=== PATIENT | female | born 1955 | race Caucasian/White ===

== ENCOUNTER → 2018-12-08 | Outpatient (CLI) | payer BC ==
[~2018-12-08] MED LIST: AMIT50 PO; AMLO5 PO; ATOR20 PO; KETO10 PO; LISI20 PO; Pepcid40 MG PO
[2018-12-08 12:40] LABS: BASOPHILS ABSOLUTE AUTO 0.05 K/mm3 (0.00-0.23); BASOPHILS PERCENT AUTO 0 % (0-2); EOSINOPHILS ABSOLUTE AUTO 0.07 K/mm3 (0.00-0.68); EOSINOPHILS PERCENT AUTO 1 % (0-6); Hematocrit 43.6 % (33.0-51.0); Hemoglobin 14.5 g/dL (11.5-16.0); IMMATURE GRAN ABSOLUTE AUTO 0.03 K/mm3 (0.00-0.10); IMMATURE GRAN PERCENT AUTO 0 % (0-1); LYMPHOCYTES PERCENT AUTO 14 % (21-46); MONOCYTES PERCENT AUTO 6 % (4-13); Mean Corpuscular HGB 31.1 pg (26.0-34.0); Mean Corpuscular HGB Conc 33.3 g/dL (31.5-36.5); Mean Corpuscular Volume 94 fL (80-100); Mean Platelet Volume 10.8 fL (9.1-12.4); NEUTROPHILS ABSOLUTE AUTO 9.54 K/mm3 (1.96-9.15); NEUTROPHILS PERCENT AUTO 79 % (41-73); Platelet Count 336 K/mm3 (150-400); RDW Coefficient Variation 11.7 % (11.7-14.2); RDW Standard Deviation 39.6 fL (35.1-46.3); Red Blood Cell Count 4.66 M/mm3 (3.80-5.20); White Blood Cell Count 12.09 K/mm3 (4.00-11.30)
[2018-12-08 12:43] LABS: Alanine Aminotransfer (ALT/SGP 30 U/L (12-78); Albumin, Blood 4.2 g/dL (3.4-5.0); Alk Phos 141 U/L (50-136); Anion Gap 10 mmol/L (6-16); Aspartate Aminotrans (AST/SGOT 19 U/L (12-37); Bilirubin, Total 0.8 mg/dL (0.1-1.0); Blood Urea Nitrogen 15 mg/dL (8-24); Bun/Creatinine Ratio 19.6 (12.0-20.0); CO2, Blood 28 mmol/L (21-32); Calcium, Blood 9.5 mg/dL (8.5-10.1); Chloride, Blood 102 mmol/L (98-108); Creatinine, Blood 0.77 mg/dL (0.40-1.00); Globulin, Blood 4.2 g/dL (2.2-4.0); Glomerular Filtration Rate >60 (60-); Glucose, Blood 122 mg/dL (70-99); Sodium, Blood 140 mmol/L (136-145); Total Protein, Blood 8.4 g/dL (6.4-8.2)
== END ==
LOC: LAB 11:59 → LAB SHORT 11:59
PROVIDERS: Nurse Practitioner
DX: R10.84 Generalized abdominal pain (principal)
CPT/HCPCS: 80053; 85025

== ENCOUNTER 2019-12-15 10:25 | Observation (INO) | payer MEDICARE, OTHER ==
[~2019-12-15] VITALS: Ht 157.5 cm; Wt 68.2 kg
[~2019-12-15 10:25] MED LIST changes: -AMIT50 PO; -AMLO5 PO; -ATOR20 PO; -KETO10 PO; -LISI20 PO
[2019-12-15 10:56] LABS: BASOPHILS ABSOLUTE AUTO 0.05 K/mm3 (0.00-0.23); BASOPHILS PERCENT AUTO 1 % (0-2); EOSINOPHILS PERCENT AUTO 1 % (0-6); Hematocrit 43.6 % (33.0-51.0); Hemoglobin 14.9 g/dL (11.5-16.0); IMMATURE GRAN ABSOLUTE AUTO 0.02 K/mm3 (0.00-0.10); IMMATURE GRAN PERCENT AUTO 0 % (0-1); LYMPHOCYTES ABSOLUTE AUTO 1.72 K/mm3 (0.84-5.20); LYMPHOCYTES PERCENT AUTO 23 % (21-46); MONOCYTES ABSOLUTE AUTO 0.39 K/mm3 (0.16-1.47); MONOCYTES PERCENT AUTO 5 % (4-13); Mean Corpuscular HGB 32.2 pg (26.0-34.0); Mean Corpuscular HGB Conc 34.2 g/dL (31.5-36.5); Mean Corpuscular Volume 94 fL (80-100); Mean Platelet Volume 9.9 fL (9.1-12.4); NEUTROPHILS ABSOLUTE AUTO 5.28 K/mm3 (1.96-9.15); NEUTROPHILS PERCENT AUTO 70 % (41-73); Platelet Count 306 K/mm3 (150-400); RDW Standard Deviation 38.2 fL (35.1-46.3); Red Blood Cell Count 4.63 M/mm3 (3.80-5.20); White Blood Cell Count 7.56 K/mm3 (4.00-11.30)
[2019-12-15 11:15] LABS: Alanine Aminotransfer (ALT/SGP 24 U/L (12-78); Albumin, Blood 4.2 g/dL (3.4-5.0); Albumin/Globulin Ratio 1.1 (0.8-1.8); Alk Phos 103 U/L (50-136); Anion Gap 4 mmol/L (6-16); Aspartate Aminotrans (AST/SGOT 18 U/L (12-37); Bilirubin, Total 0.7 mg/dL (0.1-1.0); Blood Urea Nitrogen 18 mg/dL (8-24); Bun/Creatinine Ratio 30.8 (12.0-20.0); CO2, Blood 30 mmol/L (21-32); Calcium, Blood 9.2 mg/dL (8.5-10.1); Chloride, Blood 99 mmol/L (98-108); Creatinine, Blood 0.58 mg/dL (0.40-1.00); Globulin, Blood 3.8 g/dL (2.2-4.0); Glomerular Filtration Rate >60 (60-); Glucose, Blood 120 mg/dL (70-99); Sodium, Blood 133 mmol/L (136-145)
[2019-12-15] MEDS ORDERED: ATOR40TA PO (14:09)
[2019-12-15] MEDS ORDERED: ALBU90OI INH (14:10)
[2019-12-15] MEDS ORDERED: AMIT50 PO (14:32)
[2019-12-15] MEDS ORDERED: AMLODIPINE BES2.5 MG PO (14:32)
[2019-12-15] MEDS ORDERED: KETO10 PO (14:32)
[2019-12-15] MEDS ORDERED: LISI20 PO (14:35)
[2019-12-15 16:20] LABS: Source, Urine Clean Catch
[2019-12-15 16:27] LABS: Bilirubin, Urine Neg (Neg); Blood, Urine Neg (Neg); Glucose Qualitative, Urine Neg (Neg); Ketones, Urine 1+ (Neg); Leukocyte Esterase, Urine Neg (Neg); Nitrite, Urine Neg (Neg); Protein, Urine Neg (Neg); Specific Gravity, Urine 1.005 (1.003-1.022); Urobilinogen, Urine NORM (Normal)
[2019-12-15 16:38] LABS: Appearance, Urine Clear (Clear); Color, Urine Pale Yellow (P-Yellow)
--- NOTE | 2019-12-15 19:13 | NUR ---
PT JUST SAID SHE HAD A BM BUT WAS UNIDENTIFIED, NOT SEEN BY LEARNING MANAGER, PT TOOK OUT MEASUING GRADULE, URINE OUTPUT NOT MEASURED
--- NOTE | 2019-12-15 20:04 | NUR ---
SHIFT SUMMARY- PT ALERT AND ORIENTED AND INDEPENDENT PER REPORT FROM ED. PT A&O X4 WITH SOME DIFFICULTY WITH WORD RECALL. PT CAN CARRY ON A CONVERSATION WELL ENOUGH. NO NOTABLE PHYSICAL DEFICITES. ADMISSION ASSESSMENT COMPLETEWD AND MED REC COMPLETED WITH WRITTEN MED LIST PROVIDED BY PT SPOUSE, PHOTO COPY PLACED IN THE PT CHART WITH A PT SCREWDOWN OPERATOR IT.
[2019-12-16 04:28] LABS: BASOPHILS ABSOLUTE AUTO 0.05 K/mm3 (0.00-0.23); BASOPHILS PERCENT AUTO 1 % (0-2); EOSINOPHILS ABSOLUTE AUTO 0.13 K/mm3 (0.00-0.68); EOSINOPHILS PERCENT AUTO 2 % (0-6); Hematocrit 41.2 % (33.0-51.0); Hemoglobin 13.8 g/dL (11.5-16.0); IMMATURE GRAN ABSOLUTE AUTO 0.02 K/mm3 (0.00-0.10); IMMATURE GRAN PERCENT AUTO 0 % (0-1); LYMPHOCYTES ABSOLUTE AUTO 1.77 K/mm3 (0.84-5.20); LYMPHOCYTES PERCENT AUTO 27 % (21-46); MONOCYTES ABSOLUTE AUTO 0.45 K/mm3 (0.16-1.47); MONOCYTES PERCENT AUTO 7 % (4-13); Mean Corpuscular HGB 31.7 pg (26.0-34.0); Mean Corpuscular HGB Conc 33.5 g/dL (31.5-36.5); Mean Corpuscular Volume 95 fL (80-100); Mean Platelet Volume 9.6 fL (9.1-12.4); NEUTROPHILS ABSOLUTE AUTO 4.15 K/mm3 (1.96-9.15); NEUTROPHILS PERCENT AUTO 63 % (41-73); Platelet Count 269 K/mm3 (150-400); RDW Coefficient Variation 11.1 % (11.7-14.2); RDW Standard Deviation 38.5 fL (35.1-46.3); Red Blood Cell Count 4.35 M/mm3 (3.80-5.20); White Blood Cell Count 6.57 K/mm3 (4.00-11.30)
[2019-12-16 04:46] LABS: Alanine Aminotransfer (ALT/SGP 22 U/L (12-78); Albumin, Blood 3.5 g/dL (3.4-5.0); Alk Phos 85 U/L (50-136); Anion Gap 5 mmol/L (6-16); Aspartate Aminotrans (AST/SGOT 14 U/L (12-37); Bilirubin, Total 0.4 mg/dL (0.1-1.0); Blood Urea Nitrogen 14 mg/dL (8-24); Bun/Creatinine Ratio 21.5 (12.0-20.0); CO2, Blood 30 mmol/L (21-32); Calcium, Blood 8.5 mg/dL (8.5-10.1); Chloride, Blood 105 mmol/L (98-108); Creatinine, Blood 0.65 mg/dL (0.40-1.00); Globulin, Blood 3.6 g/dL (2.2-4.0); Glomerular Filtration Rate >60 (60-); Glucose, Blood 113 mg/dL (70-99); Potassium, Blood 4.3 mmol/L (3.5-5.5); Sodium, Blood 140 mmol/L (136-145); Total Protein, Blood 7.1 g/dL (6.4-8.2)
--- NOTE | 2019-12-16 06:45 | NUR ---
SHIFT SUMMARY: A/OX3. MAKES NEEDS KNOWN. REPORTED L SIDED LINCOLN X1. RESPONDED WELL TO TYLENOL. SMILE SYMMETRICAL. VISITOR SERVICES ASSISTANT/PUSHES/PULLS EQUAL BILATERLLY. CONT TO BE SLOW WITH VERBAL RESPONSES AND STRUGGLES WITH FINDING WORDS. FAMILY CONCERNED, STATING PT. HAS BEEN INCREASINGLY FORGETFUL FOR SOME TIME PRIOR TO BEING ADMITTED TO HOSPITAL. DENIES LINCOLN AT THIS TIME. BED LOW, CALL BUTTON IN REACH. WILL CONT TO MONITOR.
[2019-12-16] MEDS ORDERED: Aspir 8181 MG PO (11:33)
--- NOTE | 2019-12-16 12:57 | NUR ---
SUMMARY/DISCHARGE PT AND SPOUSE VERBALIZED UNDERSTANDING OF DISCHARGE INSTRUCTIONS REGARDING MEDS AND STATED THEY WOULD CALL AND SET UP AN APPOINTMENT WITH THE PCP ON WEDNESDAY, PT TAKEN OUT SAFELY VIA WHEELCHAIR
== END 2019-12-16 12:58 | disposition home or self-care (01) ==
LOC: ER 10:25 → MEDS 10:26 → ER 14:24 → MEDS 16:59 → ENPENDDIS 12-16 11:27 → MEDS 12-16 12:58
PROVIDERS: Nurse Practitioner Acute Care; Physician Assistant; ADMIT Family Medicine
DX: I63.512 Cerebral infarction due to unspecified occlusion or stenosis of left middle cerebral artery (principal); I63.532 Cerebral infarction due to unspecified occlusion or stenosis of left posterior cerebral artery; I10 Essential (primary) hypertension; E78.5 Hyperlipidemia, unspecified; F32.9 Major depressive disorder, single episode, unspecified; G43.909 Migraine, unspecified, not intractable, without status migrainosus; K21.9 Gastro-esophageal reflux disease without esophagitis; E78.1 Pure hyperglyceridemia; L40.9 Psoriasis, unspecified; Z79.82 Long term (current) use of aspirin; Z79.899 Other long term (current) drug therapy; Z87.891 Personal history of nicotine dependence
CPT/HCPCS: 36415; 70450; 70551; 80053; 81003; 83735; 85025; 92523; 93005; 93010; 93306; 93880; 97161; 99285-25; A9270; A9270-GY; G0378; J7030

== ENCOUNTER 2020-04-16 09:15 | Emergency (ER) | payer MEDICARE, OTHER ==
[~2020-04-16] VITALS: Ht 157.5 cm; Wt 66.7 kg
[~2020-04-16 09:15] MED LIST changes: +ALBU90OI INH; +AMIT50 PO; +AMLODIPINE BES2.5 MG PO; +ATOR40TA PO; +Aspir 8181 MG PO; +KETO10 PO; +LISI20 PO
[2020-04-16] MEDS ORDERED: CLOP75 PO (10:42)
[2020-04-16 10:44] LABS: BASOPHILS ABSOLUTE AUTO 0.07 K/mm3 (0.00-0.23); BASOPHILS PERCENT AUTO 1 % (0-2); EOSINOPHILS ABSOLUTE AUTO 0.17 K/mm3 (0.00-0.68); EOSINOPHILS PERCENT AUTO 3 % (0-6); Hematocrit 41.3 % (33.0-51.0); Hemoglobin 13.4 g/dL (11.5-16.0); IMMATURE GRAN ABSOLUTE AUTO 0.02 K/mm3 (0.00-0.10); IMMATURE GRAN PERCENT AUTO 0 % (0-1); LYMPHOCYTES PERCENT AUTO 26 % (21-46); MONOCYTES ABSOLUTE AUTO 0.51 K/mm3 (0.16-1.47); MONOCYTES PERCENT AUTO 8 % (4-13); Mean Corpuscular HGB 31.2 pg (26.0-34.0); Mean Corpuscular HGB Conc 32.4 g/dL (31.5-36.5); Mean Corpuscular Volume 96 fL (80-100); Mean Platelet Volume 10.4 fL (9.1-12.4); NEUTROPHILS ABSOLUTE AUTO 4.24 K/mm3 (1.96-9.15); NEUTROPHILS PERCENT AUTO 62 % (41-73); Platelet Count 348 K/mm3 (150-400); RDW Standard Deviation 42.3 fL (35.1-46.3); Red Blood Cell Count 4.29 M/mm3 (3.80-5.20); White Blood Cell Count 6.81 K/mm3 (4.00-11.30)
[2020-04-16 10:59] LABS: Alanine Aminotransfer (ALT/SGP 34 U/L (12-78); Albumin/Globulin Ratio 1.1 (0.8-1.8); Alk Phos 85 U/L (50-136); Anion Gap 4 mmol/L (6-16); Aspartate Aminotrans (AST/SGOT 24 U/L (12-37); Bilirubin, Total 0.4 mg/dL (0.1-1.0); Blood Urea Nitrogen 20 mg/dL (8-24); Bun/Creatinine Ratio 31.3 (12.0-20.0); CO2, Blood 31 mmol/L (21-32); Calcium, Blood 9.1 mg/dL (8.5-10.1); Chloride, Blood 105 mmol/L (98-108); Creatinine, Blood 0.64 mg/dL (0.40-1.00); Globulin, Blood 3.8 g/dL (2.2-4.0); Glomerular Filtration Rate >60 (60-); Glucose, Blood 124 mg/dL (70-99); Potassium, Blood 4.2 mmol/L (3.5-5.5); Sodium, Blood 140 mmol/L (136-145); Total Protein, Blood 7.8 g/dL (6.4-8.2); Troponin I <0.015 ng/mL (0.000-0.040)
== END 2020-04-16 12:05 | disposition home or self-care (01) ==
LOC: ER 09:15
PROVIDERS: Emergency Medicine
DX: R07.9 Chest pain, unspecified (principal); I10 Essential (primary) hypertension; Z86.73 Personal history of transient ischemic attack (TIA), and cerebral infarction without residual deficits; Z79.899 Other long term (current) drug therapy; Z79.82 Long term (current) use of aspirin; Z87.891 Personal history of nicotine dependence
CPT/HCPCS: 36415; 71046; 80053; 83880; 84484; 85025; 93005; 93010; 99285-25

== ENCOUNTER 2021-02-04 06:36 | Day surgery (SDC) | payer MEDICARE, OTHER ==
[~2021-02-04] VITALS: Ht 157.5 cm; Wt 68.7 kg
[~2021-02-04 06:36] MED LIST changes: +CLOP75 PO; +IBUP200 PO; +TUMERIC
--- NOTE | 2021-02-04 11:55 | NUR ---
RECEIVED PATIENT FROM PACU. PT A/O AND DENIES ANY SENATION IN HER R HIP. DENIES PAIN AT THIS TIME. VSS.
--- NOTE | 2021-02-04 14:39 | NUR ---
PT REGAINING MORE SENSATION/PAIN IN HER RIGHT LEG AT THIS TIME. MEDICATED FOR PAIN.
--- NOTE | 2021-02-04 19:05 | NUR ---
SHIFT SUMMARY PT POST OP FOR A R TOTAL KNEE WITH SPINAL. PT HAS REGAINED SENSATION IN HER R LEG AND WAS ABLE TO AMBULATE TO THE BATHROOM. PT VOIDED AFTER SURGERY. PT'S PAIN IS CONTROLLED AT THIS TIME. PT IS CURRENTLY UP IN A RECLINER WITH HER CALL LIGHT IN REACH. TOLERATING PO INTAKE WELL. VSS.
--- NOTE | 2021-02-05 03:58 | NUR ---
SHIFT SUMMARY: POD 1 RIGHT TOTAL KNEE PATIENT IS ALERT AND ORIENTED X4 WHILE AWAKE. THOUGH PATIENT HAS BEEN ASLEEP MAJORITY OF THE SHIFT BUT IS EASILY AWAKEN. VS ARE WNL AND IS ON RA. PAIN IS CONTROLLED WITH JAMIALH PO. PATIENT IS TOLERATING PO INTAKE AND IS VOIDING. AQUACEL ON HER KNEE IS C/D/I. SHE IS A SBA WITH FWW AND GAIT BELT. PATIENT HAS FULL SENSATIONS IN ALL EXTREMITIES. PATIENT CALLS APPROPRIATELY. CALL LIGHT WITHIN REACH. THE PLAN IS TO CONTINUE TO WORK WITH PT TODAY.
[2021-02-05 05:26] LABS: BASOPHILS ABSOLUTE AUTO 0.04 K/mm3 (0.00-0.23); BASOPHILS PERCENT AUTO 1 % (0-2); EOSINOPHILS ABSOLUTE AUTO 0.04 K/mm3 (0.00-0.68); EOSINOPHILS PERCENT AUTO 1 % (0-6); Hematocrit 32.9 % (33.0-51.0); Hemoglobin 10.8 g/dL (11.5-16.0); IMMATURE GRAN ABSOLUTE AUTO 0.02 K/mm3 (0.00-0.10); IMMATURE GRAN PERCENT AUTO 0 % (0-1); LYMPHOCYTES ABSOLUTE AUTO 1.16 K/mm3 (0.84-5.20); LYMPHOCYTES PERCENT AUTO 14 % (21-46); MONOCYTES PERCENT AUTO 6 % (4-13); Mean Corpuscular HGB 30.9 pg (26.0-34.0); Mean Corpuscular HGB Conc 32.8 g/dL (31.5-36.5); Mean Corpuscular Volume 94 fL (80-100); Mean Platelet Volume 10.2 fL (9.1-12.4); NEUTROPHILS ABSOLUTE AUTO 6.31 K/mm3 (1.96-9.15); NEUTROPHILS PERCENT AUTO 78 % (41-73); Platelet Count 337 K/mm3 (150-400); RDW Coefficient Variation 11.9 % (11.7-14.2); RDW Standard Deviation 40.1 fL (35.1-46.3); Red Blood Cell Count 3.49 M/mm3 (3.80-5.20); White Blood Cell Count 8.07 K/mm3 (4.00-11.30)
[2021-02-05 05:31] LABS: Anion Gap 3 mmol/L (6-16); Blood Urea Nitrogen 9 mg/dL (8-24); CO2, Blood 30 mmol/L (21-32); Calcium, Blood 8.2 mg/dL (8.5-10.1); Chloride, Blood 99 mmol/L (98-108); Creatinine, Blood 0.56 mg/dL (0.40-1.00); Glomerular Filtration Rate >60 (60-); Glucose, Blood 122 mg/dL (70-99); Potassium, Blood 4.2 mmol/L (3.5-5.5); Sodium, Blood 132 mmol/L (136-145)
--- NOTE | 2021-02-05 07:50 | NUR ---
dr grayson by to see pt
[2021-02-05] MEDS ORDERED: Percocet 5-3251 EACH PO (08:22)
--- NOTE | 2021-02-05 10:54 | NUR ---
inc pain 07/11 after working with physical therapy earlier iv toradol given will give po oxy before lunch notified physical therapy that pt's spouse arrived he req that he come in for a therapy session prior to pt's discharge
--- NOTE | 2021-02-05 11:32 | NUR ---
PO PAIN MEDS GIVEN PT'S SPOUSE AND PT WORKING WITH PYSICAL THERAPY
--- NOTE | 2021-02-05 12:00 | NUR ---
discharge instrctions reviewed with pt and spouse rx given along with dressing
--- NOTE | 2021-02-05 12:20 | NUR ---
wc escort to car no acute changes to cond
== END 2021-02-05 12:30 | disposition home or self-care (01) ==
LOC: ORSCMMR 06:36 → ORD 08:15 → SURS 11:51 → ORSCMMR 02-05 12:30 → SURS 02-05 12:30
PROVIDERS: Orthopaedic Surgery
PROC: 8E0Y0CZ Robotic Assisted Procedure of Lower Extremity, Open Approach (ICD-10-PCS; principal; 2021-02-04 08:15)
PROC: 0SRC0JA Replacement of Right Knee Joint with Synthetic Substitute, Uncemented, Open Approach (ICD-10-PCS; principal; 2021-02-04 08:15)
DX: M06.9 Rheumatoid arthritis, unspecified (principal); I10 Essential (primary) hypertension; E78.5 Hyperlipidemia, unspecified; Z86.73 Personal history of transient ischemic attack (TIA), and cerebral infarction without residual deficits; Z79.899 Other long term (current) drug therapy; Z79.02 Long term (current) use of antithrombotics/antiplatelets; Z79.82 Long term (current) use of aspirin
CPT/HCPCS: 27447; S2900; 36415; 73560-RT; 80048; 85025; 87070; 87075; 87205; 97110; 97116; 97162; 97530; A9270; C1776; J0171; J0690; J0735; J1170; J1885; J2250; J2370; J2405; J2704; J2795; J3010; J7120

== ENCOUNTER 2021-04-22 17:46 | Emergency (ER) | payer MEDICARE, OTHER ==
[~2021-04-22] VITALS: Ht 157.5 cm; Wt 62.6 kg
[~2021-04-22 17:46] MED LIST changes: +Percocet 5-3251 EACH PO
[2021-04-22] MEDS ORDERED: KETO10 PO (18:05)
[2021-04-22 18:22] LABS: BASOPHILS ABSOLUTE AUTO 0.06 K/mm3 (0.00-0.23); BASOPHILS PERCENT AUTO 1 % (0-2); EOSINOPHILS ABSOLUTE AUTO 0.09 K/mm3 (0.00-0.68); EOSINOPHILS PERCENT AUTO 1 % (0-6); Hematocrit 36.2 % (33.0-51.0); Hemoglobin 12.2 g/dL (11.5-16.0); IMMATURE GRAN ABSOLUTE AUTO 0.03 K/mm3 (0.00-0.10); IMMATURE GRAN PERCENT AUTO 0 % (0-1); LYMPHOCYTES ABSOLUTE AUTO 1.77 K/mm3 (0.84-5.20); LYMPHOCYTES PERCENT AUTO 18 % (21-46); MONOCYTES ABSOLUTE AUTO 0.63 K/mm3 (0.16-1.47); MONOCYTES PERCENT AUTO 7 % (4-13); Mean Corpuscular HGB Conc 33.7 g/dL (31.5-36.5); Mean Corpuscular Volume 89 fL (80-100); Mean Platelet Volume 10.3 fL (9.1-12.4); NEUTROPHILS ABSOLUTE AUTO 7.07 K/mm3 (1.96-9.15); NEUTROPHILS PERCENT AUTO 73 % (41-73); Platelet Count 388 K/mm3 (150-400); RDW Coefficient Variation 12.7 % (11.7-14.2); RDW Standard Deviation 41.8 fL (35.1-46.3); Red Blood Cell Count 4.06 M/mm3 (3.80-5.20); White Blood Cell Count 9.65 K/mm3 (4.00-11.30)
[2021-04-22 18:50] LABS: Albumin, Blood 4.1 g/dL (3.4-5.0); Albumin/Globulin Ratio 1.1 (0.8-1.8); Bilirubin, Total 0.5 mg/dL (0.1-1.0); Bun/Creatinine Ratio 30.3 (12.0-20.0); Calcium, Blood 9.5 mg/dL (8.5-10.1); Creatinine, Blood 1.09 mg/dL (0.40-1.00); Globulin, Blood 3.8 g/dL (2.2-4.0); Potassium, Blood 4.2 mmol/L (3.5-5.5); Total Protein, Blood 7.9 g/dL (6.4-8.2)
[2021-04-22 19:02] LABS: Source, Urine Voided
[2021-04-22 19:06] LABS: Appearance, Urine Clear (Clear); Bilirubin, Urine Neg (Neg); Blood, Urine 1+ (Neg); Glucose Qualitative, Urine Neg (Neg); Ketones, Urine Neg (Neg); Leukocyte Esterase, Urine 1+ (Neg); Nitrite, Urine Neg (Neg); Protein, Urine Neg (Neg); Specific Gravity, Urine 1.015 (1.003-1.022); Urobilinogen, Urine NORM (Normal)
[2021-04-22 19:11] LABS: Color, Urine Pale Yellow (P-Yellow)
[2021-04-22 19:13] LABS: Bacteria Few /hpf; Red Blood Cells, Urine Rare /hpf (0-2); Squamous Epithelial Cells Few /hpf (Few)
== END 2021-04-22 21:28 | disposition home or self-care (01) ==
LOC: ER 17:46
PROVIDERS: Emergency Medicine
DX: R51.9 Headache, unspecified (principal); Z79.02 Long term (current) use of antithrombotics/antiplatelets; Z79.82 Long term (current) use of aspirin; Z79.899 Other long term (current) drug therapy
CPT/HCPCS: 36415; 70450; 80053; 81001; 85025; 87086; 93005; 93010; 96361; 96374; 96375; 99285-25; J1200; J1790; J1885; J2550; J7030

== ENCOUNTER 2022-03-17 16:31 | Emergency (ER) | payer MEDICARE, OTHER ==
[~2022-03-17] VITALS: Ht 157.5 cm; Wt 69.0 kg
[~2022-03-17 16:31] MED LIST changes: -DOC250 PO; -HYDR1TAB94 PO; -PRED20 PO
[2022-03-17] MEDS ORDERED: DOC250 PO (18:25)
[2022-03-17] MEDS ORDERED: HYDR1TAB94 PO (18:25)
[2022-03-17] MEDS ORDERED: PRED20 PO (18:25)
== END 2022-03-17 18:49 | disposition home or self-care (01) ==
LOC: ER 16:31
DX: M25.562 Pain in left knee (principal); I10 Essential (primary) hypertension; E78.5 Hyperlipidemia, unspecified; Z86.73 Personal history of transient ischemic attack (TIA), and cerebral infarction without residual deficits; Z96.651 Presence of right artificial knee joint; Z87.891 Personal history of nicotine dependence; Z79.899 Other long term (current) drug therapy; Z79.82 Long term (current) use of aspirin
CPT/HCPCS: 73562-LT; 93971; 99284-25; A9270

== ENCOUNTER → 2022-03-17 | Outpatient (CLI) | payer MEDICARE, OTHER ==
[~2022-03-17] MED LIST changes: +DOC250 PO; +HYDR1TAB94 PO; +PRED20 PO
[2022-03-17 14:42] LABS: BASOPHILS ABSOLUTE AUTO 0.07 K/mm3 (0.00-0.23); BASOPHILS PERCENT AUTO 1 % (0-2); EOSINOPHILS ABSOLUTE AUTO 0.34 K/mm3 (0.00-0.68); EOSINOPHILS PERCENT AUTO 5 % (0-6); Hematocrit 41.2 % (33.0-51.0); Hemoglobin 14.3 g/dL (11.5-16.0); IMMATURE GRAN ABSOLUTE AUTO 0.02 K/mm3 (0.00-0.10); IMMATURE GRAN PERCENT AUTO 0 % (0-1); LYMPHOCYTES ABSOLUTE AUTO 2.02 K/mm3 (0.84-5.20); LYMPHOCYTES PERCENT AUTO 27 % (21-46); MONOCYTES ABSOLUTE AUTO 0.52 K/mm3 (0.16-1.47); MONOCYTES PERCENT AUTO 7 % (4-13); Mean Corpuscular HGB 31.2 pg (26.0-34.0); Mean Corpuscular HGB Conc 34.7 g/dL (31.5-36.5); Mean Corpuscular Volume 90 fL (80-100); Mean Platelet Volume 10.1 fL (9.1-12.4); NEUTROPHILS ABSOLUTE AUTO 4.53 K/mm3 (1.96-9.15); NEUTROPHILS PERCENT AUTO 61 % (41-73); Platelet Count 351 K/mm3 (150-400); RDW Coefficient Variation 11.4 % (11.7-14.2); RDW Standard Deviation 37.5 fL (35.1-46.3); Red Blood Cell Count 4.58 M/mm3 (3.80-5.20)
== END ==
LOC: LAB 14:35 → LAB SHORT 14:35
PROVIDERS: Physician Assistant
DX: M25.512 Pain in left shoulder (principal)
CPT/HCPCS: 85025; 85379

== ENCOUNTER 2024-10-16 12:36 | Inpatient (IN) | payer MEDICARE, OTHER ==
[~2024-10-16] VITALS: Ht 157.5 cm; Wt 61.7 kg
[2024-10-16] VITALS (12 sets, daily range): BP systolic 168–192; BP diastolic 66–93
[~2024-10-16 12:36] MED LIST changes: +ATOR10 PO; -ATOR40TA PO; +DOC250 PO; +HYDR1TAB94 PO; +PRED20 PO
[2024-10-16 12:55] LABS: BASOPHILS ABSOLUTE AUTO 0.05 K/mm3 (0.00-0.23); BASOPHILS PERCENT AUTO 0 % (0-2); EOSINOPHILS ABSOLUTE AUTO 0.02 K/mm3 (0.00-0.68); EOSINOPHILS PERCENT AUTO 0 % (0-6); Hematocrit 36.2 % (33.0-51.0); Hemoglobin 12.4 g/dL (11.5-16.0); IMMATURE GRAN ABSOLUTE AUTO 0.06 K/mm3 (0.00-0.10); IMMATURE GRAN PERCENT AUTO 1 % (0-1); LYMPHOCYTES ABSOLUTE AUTO 1.23 K/mm3 (0.84-5.20); LYMPHOCYTES PERCENT AUTO 11 % (21-46); MONOCYTES ABSOLUTE AUTO 0.16 K/mm3 (0.16-1.47); MONOCYTES PERCENT AUTO 1 % (4-13); Mean Corpuscular HGB 31.6 pg (26.0-34.0); Mean Corpuscular HGB Conc 34.3 g/dL (31.5-36.5); Mean Corpuscular Volume 92 fL (80-100); Mean Platelet Volume 9.8 fL (9.1-12.4); NEUTROPHILS ABSOLUTE AUTO 9.82 K/mm3 (1.96-9.15); NEUTROPHILS PERCENT AUTO 87 % (41-73); Platelet Count 348 K/mm3 (150-400); RDW Coefficient Variation 11.2 % (11.7-14.2); RDW Standard Deviation 38.1 fL (35.1-46.3); Red Blood Cell Count 3.92 M/mm3 (3.80-5.20); White Blood Cell Count 11.34 K/mm3 (4.00-11.30)
[2024-10-16 13:25] LABS: Albumin, Blood 3.7 g/dL (3.4-5.0); Bilirubin, Total 0.4 mg/dL (0.1-1.0); Bun/Creatinine Ratio 20.1 (12.0-20.0); Calcium, Blood 8.8 mg/dL (8.5-10.1); Creatinine, Blood 0.95 mg/dL (0.40-1.00); Globulin, Blood 3.7 g/dL (2.2-4.0); Potassium, Blood 4.2 mmol/L (3.5-5.5); Total Protein, Blood 7.4 g/dL (6.4-8.2)
[2024-10-16 14:33] LABS: Anti-Xa UFH, PHA Monitoring <0.10 IU/mL; Prothrombin Time Results 9.7 Sec (9.7-11.5)
[2024-10-16] MEDS ORDERED: Dose Adjust by Pharmacy XX STA ×2 (14:45→22:26)
[2024-10-16] MEDS ORDERED: Heparin Sodium,Porcine/0.5 NS 500 ML IV SCH (14:50)
[2024-10-16] MEDS ORDERED: FLU VACC TS2024-25(6MOS UP)/PF 45 MCG/0.5 ML SYRINGE IM PRN (15:50)
[2024-10-16] MEDS ORDERED: HydrALAZINE HCl 10 MG Tab PO PRN (15:50)
[2024-10-16] MEDS ORDERED: Ondansetron HCl 2 MG / ML 2ML Vial IV PRN (15:50)
[2024-10-16] MEDS ORDERED: MIRALAX17 GM PT (17:50)
[2024-10-16] MEDS ORDERED: NIFE30ER PO (18:30)
[2024-10-16] MEDS ORDERED: PRED5 PT (18:31)
[2024-10-16] MEDS ORDERED: HYDSUL200 PO ×2 (18:32)
[2024-10-16] MEDS ORDERED: MIRTAZAPINE7.5 M1 PO (18:33)
[2024-10-16] MEDS ORDERED: Docusate Sodium 100 MG Cap PO SCH (21:00)
[2024-10-16] MEDS ORDERED: Sennosides 8.6 MG Tab PO SCH (21:00)
[2024-10-16] MEDS ORDERED: Mirtazapine 15 MG Tab PO SCH (21:00)
[2024-10-16] MEDS ORDERED: Hydroxychloroquine Sulfate 200 MG Tab PO SCH (21:00)
[2024-10-17] VITALS (50 sets, daily range): BP systolic 80–208; BP diastolic 49–156
[2024-10-17 04:33] LABS: BASOPHILS ABSOLUTE AUTO 0.05 K/mm3 (0.00-0.23); BASOPHILS PERCENT AUTO 1 % (0-2); EOSINOPHILS ABSOLUTE AUTO 0.18 K/mm3 (0.00-0.68); EOSINOPHILS PERCENT AUTO 3 % (0-6); Hematocrit 34.7 % (33.0-51.0); Hemoglobin 11.8 g/dL (11.5-16.0); IMMATURE GRAN ABSOLUTE AUTO 0.02 K/mm3 (0.00-0.10); IMMATURE GRAN PERCENT AUTO 0 % (0-1); LYMPHOCYTES PERCENT AUTO 42 % (21-46); MONOCYTES ABSOLUTE AUTO 0.48 K/mm3 (0.16-1.47); MONOCYTES PERCENT AUTO 7 % (4-13); Mean Corpuscular Volume 94 fL (80-100); Mean Platelet Volume 9.7 fL (9.1-12.4); NEUTROPHILS ABSOLUTE AUTO 3.37 K/mm3 (1.96-9.15); NEUTROPHILS PERCENT AUTO 47 % (41-73); Platelet Count 311 K/mm3 (150-400); RDW Coefficient Variation 11.4 % (11.7-14.2); RDW Standard Deviation 38.9 fL (35.1-46.3); Red Blood Cell Count 3.69 M/mm3 (3.80-5.20)
[2024-10-17] MEDS ORDERED: Clarify Drug Order XX ONE (05:15)
[2024-10-17 05:18] LABS: Alanine Aminotransfer (ALT/SGP 31 U/L (12-78); Albumin, Blood 3.3 g/dL (3.4-5.0); Alk Phos 127 U/L (50-136); Anion Gap 8 mmol/L (3-11); Aspartate Aminotrans (AST/SGOT 24 U/L (12-37); Bilirubin, Total 0.3 mg/dL (0.1-1.0); Blood Urea Nitrogen 16 mg/dL (8-24); Bun/Creatinine Ratio 22.9 (12.0-20.0); CHOL/HDL RATIO 2.5; CO2, Blood 28 mmol/L (21-32); Calcium, Blood 9.1 mg/dL (8.5-10.1); Chloride, Blood 109 mmol/L (98-108); Cholesterol 192 mg/dL (50-200); Globulin, Blood 3.4 g/dL (2.2-4.0); Glomerular Filtration Rate 94 (60-); Glucose, Blood 107 mg/dL (70-99); HDL Cholesterol 77 mg/dL (>39); LDL/HDL RATIO 1.1; Low Density Lipoprotein Chol 88 mg/dL (0-110); Potassium, Blood 3.9 mmol/L (3.5-5.5); Sodium, Blood 141 mmol/L (136-145); Total Protein, Blood 6.7 g/dL (6.4-8.2); Triglycerides 133 mg/dL (30-160); Very Low Density Lipoprot Chol 26 mg/dL (6-32)
[2024-10-17] MEDS ORDERED: Atorvastatin 40 MG Tab PO SCH (09:00)
[2024-10-17] MEDS ORDERED: Hydroxychloroquine Sulfate 200 MG Tab PO SCH (09:00)
[2024-10-17] MEDS ORDERED: NIFEdipine 30 MG TabCR PO SCH (09:00)
[2024-10-17] MEDS ORDERED: PredniSONE 5 MG Tab PO SCH (09:00)
[2024-10-17] MEDS ORDERED: Losartan Potassium 25 MG Tab PO SCH (09:00)
[2024-10-17] MEDS ORDERED: Polyethylene Glycol 3350 17 gm PO SCH (09:00)
[2024-10-17] MEDS ORDERED: Magnesium Oxide 400 MG Tab PO SCH (09:00)
[2024-10-17] MEDS ORDERED: Dose Adjust by Pharmacy XX STA (11:28)
[2024-10-17] MEDS ORDERED: HydrALAZINE HCl 20 MG / ML 1ML Vial IV ONE (13:05)
[2024-10-17] MEDS ORDERED: Lactated Ringer's 1,000 ML IV ONE (13:40)
[2024-10-17] MEDS ORDERED: HydrALAZINE HCl 20 MG / ML 1ML Vial IV PRN (13:50)
[2024-10-17] MEDS ORDERED: Lactated Ringer's 1,000 ML IV SCH (13:55)
[2024-10-17] MEDS ORDERED: Hydrocortisone Sod Succinate 100 MG Vial IV SCH ×2 (14:00→21:00)
[2024-10-17 14:24] LABS: BASOPHILS ABSOLUTE AUTO 0.08 K/mm3 (0.00-0.23); BASOPHILS PERCENT AUTO 1 % (0-2); EOSINOPHILS ABSOLUTE AUTO 0.02 K/mm3 (0.00-0.68); EOSINOPHILS PERCENT AUTO 0 % (0-6); Hematocrit 35.2 % (33.0-51.0); Hemoglobin 12.3 g/dL (11.5-16.0); IMMATURE GRAN ABSOLUTE AUTO 0.04 K/mm3 (0.00-0.10); IMMATURE GRAN PERCENT AUTO 0 % (0-1); LYMPHOCYTES ABSOLUTE AUTO 2.97 K/mm3 (0.84-5.20); LYMPHOCYTES PERCENT AUTO 25 % (21-46); MONOCYTES ABSOLUTE AUTO 0.31 K/mm3 (0.16-1.47); MONOCYTES PERCENT AUTO 3 % (4-13); Mean Corpuscular HGB Conc 34.9 g/dL (31.5-36.5); Mean Corpuscular Volume 92 fL (80-100); Mean Platelet Volume 10.3 fL (9.1-12.4); NEUTROPHILS ABSOLUTE AUTO 8.47 K/mm3 (1.96-9.15); NEUTROPHILS PERCENT AUTO 71 % (41-73); Platelet Count 384 K/mm3 (150-400); RDW Coefficient Variation 11.5 % (11.7-14.2); RDW Standard Deviation 38.5 fL (35.1-46.3); Red Blood Cell Count 3.84 M/mm3 (3.80-5.20); White Blood Cell Count 11.89 K/mm3 (4.00-11.30)
[2024-10-17 14:48] LABS: Albumin, Blood 3.6 g/dL (3.4-5.0); Bilirubin, Total 0.4 mg/dL (0.1-1.0); Bun/Creatinine Ratio 19.1 (12.0-20.0); Calcium, Blood 9.4 mg/dL (8.5-10.1); Creatinine, Blood 0.79 mg/dL (0.40-1.00); Globulin, Blood 3.5 g/dL (2.2-4.0); Potassium, Blood 3.8 mmol/L (3.5-5.5); Total Protein, Blood 7.1 g/dL (6.4-8.2)
[2024-10-18] VITALS (93 sets, daily range): BP systolic 122–205; BP diastolic 62–154
[2024-10-18 02:37] LABS: BASOPHILS ABSOLUTE AUTO 0.03 K/mm3 (0.00-0.23); BASOPHILS PERCENT AUTO 0 % (0-2); EOSINOPHILS PERCENT AUTO 0 % (0-6); Hematocrit 39.9 % (33.0-51.0); Hemoglobin 13.6 g/dL (11.5-16.0); IMMATURE GRAN ABSOLUTE AUTO 0.03 K/mm3 (0.00-0.10); IMMATURE GRAN PERCENT AUTO 0 % (0-1); LYMPHOCYTES PERCENT AUTO 20 % (21-46); MONOCYTES ABSOLUTE AUTO 0.34 K/mm3 (0.16-1.47); MONOCYTES PERCENT AUTO 4 % (4-13); Mean Corpuscular HGB 32.2 pg (26.0-34.0); Mean Corpuscular HGB Conc 34.1 g/dL (31.5-36.5); Mean Corpuscular Volume 94 fL (80-100); Mean Platelet Volume 9.9 fL (9.1-12.4); NEUTROPHILS ABSOLUTE AUTO 6.98 K/mm3 (1.96-9.15); NEUTROPHILS PERCENT AUTO 76 % (41-73); Platelet Count 377 K/mm3 (150-400); RDW Coefficient Variation 11.5 % (11.7-14.2); RDW Standard Deviation 39.6 fL (35.1-46.3); Red Blood Cell Count 4.23 M/mm3 (3.80-5.20); White Blood Cell Count 9.18 K/mm3 (4.00-11.30)
[2024-10-18 02:51] LABS: Albumin, Blood 3.7 g/dL (3.4-5.0); Albumin/Globulin Ratio 0.9 (0.8-1.8); Bilirubin, Total 0.5 mg/dL (0.1-1.0); Bun/Creatinine Ratio 19.3 (12.0-20.0); Calcium, Blood 9.4 mg/dL (8.5-10.1); Creatinine, Blood 0.57 mg/dL (0.40-1.00); Globulin, Blood 3.9 g/dL (2.2-4.0); Potassium, Blood 3.7 mmol/L (3.5-5.5); Total Protein, Blood 7.6 g/dL (6.4-8.2)
[2024-10-18] MEDS ORDERED: Clarify Drug Order XX ONE (03:15)
[2024-10-18] MEDS ORDERED: Protein Supplement 30 ML UD PT SCH (21:00)
[2024-10-18] MEDS ORDERED: Docusate Sodium 100 MG UDC PT SCH (21:00)
[2024-10-18] MEDS ORDERED: Sennosides 8.6 MG Tab PT SCH (21:00)
[2024-10-19] VITALS (64 sets, daily range): BP systolic 138–229; BP diastolic 65–173
[2024-10-19 04:04] LABS: BASOPHILS ABSOLUTE AUTO 0.03 K/mm3 (0.00-0.23); BASOPHILS PERCENT AUTO 0 % (0-2); EOSINOPHILS PERCENT AUTO 0 % (0-6); Hematocrit 38.5 % (33.0-51.0); Hemoglobin 12.7 g/dL (11.5-16.0); IMMATURE GRAN ABSOLUTE AUTO 0.03 K/mm3 (0.00-0.10); IMMATURE GRAN PERCENT AUTO 0 % (0-1); LYMPHOCYTES ABSOLUTE AUTO 2.15 K/mm3 (0.84-5.20); LYMPHOCYTES PERCENT AUTO 18 % (21-46); MONOCYTES ABSOLUTE AUTO 0.59 K/mm3 (0.16-1.47); MONOCYTES PERCENT AUTO 5 % (4-13); Mean Corpuscular HGB 31.3 pg (26.0-34.0); Mean Corpuscular Volume 95 fL (80-100); Mean Platelet Volume 10.1 fL (9.1-12.4); NEUTROPHILS ABSOLUTE AUTO 9.19 K/mm3 (1.96-9.15); NEUTROPHILS PERCENT AUTO 77 % (41-73); Platelet Count 287 K/mm3 (150-400); RDW Coefficient Variation 11.4 % (11.7-14.2); RDW Standard Deviation 39.8 fL (35.1-46.3); Red Blood Cell Count 4.06 M/mm3 (3.80-5.20); White Blood Cell Count 11.99 K/mm3 (4.00-11.30)
[2024-10-19 04:24] LABS: Bun/Creatinine Ratio 32.7 (12.0-20.0); Calcium, Blood 9.6 mg/dL (8.5-10.1); Creatinine, Blood 0.7 mg/dL (0.40-1.00); Magnesium, Blood 2.5 mg/dL (1.6-2.4); Phosphorus, Blood 4.2 mg/dL (2.5-4.9); Potassium, Blood 3.8 mmol/L (3.5-5.5)
[2024-10-19] MEDS ORDERED: Lisinopril 5 MG Tab PO SCH (10:00)
[2024-10-19] MEDS ORDERED: Ticagrelor 90 MG TABLET PO SCH (10:00)
[2024-10-19] MEDS ORDERED: HydrALAZINE HCl 10 MG Tab PO SCH (14:00)
[2024-10-19] MEDS ORDERED: Atorvastatin 40 MG Tab PO SCH (14:00)
[2024-10-19] MEDS ORDERED: HydrALAZINE HCl 10 MG Tab PO PRN (15:35)
[2024-10-19] MEDS ORDERED: Hydrocortisone Sod Succinate 100 MG Vial IV SCH (21:00)
[2024-10-20] VITALS (13 sets, daily range): BP systolic 130–178; BP diastolic 58–108
[2024-10-20 07:48] LABS: BASOPHILS ABSOLUTE AUTO 0.06 K/mm3 (0.00-0.23); BASOPHILS PERCENT AUTO 1 % (0-2); EOSINOPHILS ABSOLUTE AUTO 0.07 K/mm3 (0.00-0.68); EOSINOPHILS PERCENT AUTO 1 % (0-6); IMMATURE GRAN ABSOLUTE AUTO 0.02 K/mm3 (0.00-0.10); IMMATURE GRAN PERCENT AUTO 0 % (0-1); LYMPHOCYTES ABSOLUTE AUTO 2.53 K/mm3 (0.84-5.20); LYMPHOCYTES PERCENT AUTO 28 % (21-46); MONOCYTES ABSOLUTE AUTO 0.72 K/mm3 (0.16-1.47); MONOCYTES PERCENT AUTO 8 % (4-13); Mean Corpuscular HGB 32.3 pg (26.0-34.0); Mean Corpuscular HGB Conc 35.3 g/dL (31.5-36.5); Mean Corpuscular Volume 92 fL (80-100); Mean Platelet Volume 9.8 fL (9.1-12.4); NEUTROPHILS ABSOLUTE AUTO 5.71 K/mm3 (1.96-9.15); NEUTROPHILS PERCENT AUTO 63 % (41-73); Platelet Count 304 K/mm3 (150-400); RDW Coefficient Variation 11.6 % (11.7-14.2); RDW Standard Deviation 39.1 fL (35.1-46.3); Red Blood Cell Count 3.71 M/mm3 (3.80-5.20); White Blood Cell Count 9.11 K/mm3 (4.00-11.30)
[2024-10-20 08:05] LABS: Albumin, Blood 3.1 g/dL (3.4-5.0); Albumin/Globulin Ratio 0.9 (0.8-1.8); Bilirubin, Total 0.6 mg/dL (0.1-1.0); Bun/Creatinine Ratio 33.5 (12.0-20.0); Calcium, Blood 9.1 mg/dL (8.5-10.1); Creatinine, Blood 0.63 mg/dL (0.40-1.00); Globulin, Blood 3.3 g/dL (2.2-4.0); Potassium, Blood 3.5 mmol/L (3.5-5.5); Total Protein, Blood 6.4 g/dL (6.4-8.2)
[2024-10-20] MEDS ORDERED: Acetaminophen 325 MG TABLET PO PRN (09:05)
[2024-10-20] MEDS ORDERED: Metoprolol Tartrate 1 MG/ML 5 ML VIAL IV ONE (13:30)
[2024-10-20] MEDS ORDERED: propofoL 50 ML IV ONE (16:15)
[2024-10-20] MEDS ORDERED: CeFAZolin Sodium 2,000 MG in NS 100 ML IV SCH (16:15)
[2024-10-20] MEDS ORDERED: FentaNYL Citrate 50 MCG/ML 2 ML Injection ONE (16:16)
[2024-10-20] MEDS ORDERED: Lactated Ringer's 1,000 ML IV ONE (16:21)
[2024-10-20] MEDS ORDERED: Lactated Ringer's 1,000 ML IV SCH (16:40)
[2024-10-20] MEDS ORDERED: Ondansetron HCl 2 MG / ML 2ML Vial ONE (16:55)
[2024-10-21] VITALS (7 sets, daily range): BP systolic 125–168; BP diastolic 58–106
[2024-10-21] MEDS ORDERED: Melatonin 5 MG Tablet PO PRN (07:50)
[2024-10-21] MEDS ORDERED: PredniSONE 5 MG Tab PO SCH (09:00)
[2024-10-21] MEDS ORDERED: Protein Supplement 30 ML UD PO SCH (09:00)
[2024-10-22] VITALS (11 sets, daily range): BP systolic 138–201; BP diastolic 63–139
[2024-10-22 04:09] LABS: Bun/Creatinine Ratio 44.5 (12.0-20.0); Calcium, Blood 9.3 mg/dL (8.5-10.1); Creatinine, Blood 0.61 mg/dL (0.40-1.00); Magnesium, Blood 2.7 mg/dL (1.6-2.4); Phosphorus, Blood 2.7 mg/dL (2.5-4.9); Potassium, Blood 3.6 mmol/L (3.5-5.5)
[2024-10-22] MEDS ORDERED: Lidocaine 2% Viscous Soln 20 ML,Nystatin 100,000 Unit/ml Susp 20 ML,Mag Hydrox/Al Hydro... MT PRN (14:15)
[2024-10-23 02:52] VITALS: BP 159/112
[2024-10-23 07:27] VITALS: BP 195/91
[2024-10-23 08:44] VITALS: BP 188/72
[2024-10-23 08:45] VITALS: BP 185/89
[2024-10-23 15:45] VITALS: BP 187/78
[2024-10-23 19:36] VITALS: BP 180/102
[2024-10-24 03:36] VITALS: BP 146/59
[2024-10-24 07:23] VITALS: BP 151/62
[2024-10-24] MEDS ORDERED: ATOR80 PT (10:35)
[2024-10-24] MEDS ORDERED: LISI5 PT (10:36)
[2024-10-24] MEDS ORDERED: Docusate S50 MG/5 ML PT (10:36)
[2024-10-24] MEDS ORDERED: TICA90TA PT (10:36)
[2024-10-24] MEDS ORDERED: MELATONIN5 M1 PT (10:36)
[2024-10-24] MEDS ORDERED: HydrALAZINE HCl 10 MG Tab PT PRN (13:54)
[2024-10-24] MEDS ORDERED: Acetaminophen 325 MG TABLET PT PRN (13:54)
[2024-10-24] MEDS ORDERED: Melatonin 5 MG Tablet PT PRN (13:54)
[2024-10-24 15:30] VITALS: BP 158/76
[2024-10-24 20:02] VITALS: BP 186/80
[2024-10-24] MEDS ORDERED: Ticagrelor 90 MG TABLET PT SCH (21:00)
[2024-10-25 04:13] VITALS: BP 136/69
[2024-10-25 07:15] VITALS: BP 162/68
[2024-10-25] MEDS ORDERED: Lisinopril 5 MG Tab PT SCH (09:00)
[2024-10-25] MEDS ORDERED: Polyethylene Glycol 3350 17 gm PT SCH (09:00)
[2024-10-25] MEDS ORDERED: PredniSONE 5 MG Tab PT SCH (09:00)
[2024-10-25] MEDS ORDERED: Atorvastatin 40 MG Tab PT SCH (09:00)
== END 2024-10-25 08:35 | DRG 65 ==
LOC: ER 12:36 → PCU 12:37 → ICUE 10-17 14:06 → MEDS 10-17 15:46 → ICUE 10-17 15:46 → PCU 10-17 15:46 → ICUE 10-19 15:12 → PCU 10-19 16:23 → MEDS 10-22 16:19 → ENPENDDIS 10-24 11:50 → MEDS 10-25 08:35
PROVIDERS: Emergency Medicine; Hospitalist; Internal Medicine; Surgery; ADMIT Internal Medicine
PROC: 3E033XZ Introduction of Vasopressor into Peripheral Vein, Percutaneous Approach (ICD-10-PCS; 2024-10-17)
PROC: 0DH63UZ Insertion of Feeding Device into Stomach, Percutaneous Approach (ICD-10-PCS; principal; 2024-10-20 15:30)
DX: I63.311 Cerebral infarction due to thrombosis of right middle cerebral artery (principal); G81.94 Hemiplegia, unspecified affecting left nondominant side; I10 Essential (primary) hypertension; E78.5 Hyperlipidemia, unspecified; L40.9 Psoriasis, unspecified; Z96.651 Presence of right artificial knee joint; R29.702 NIHSS score 2; R47.1 Dysarthria and anarthria; R29.810 Facial weakness; Z79.899 Other long term (current) drug therapy; Z79.02 Long term (current) use of antithrombotics/antiplatelets; Z79.82 Long term (current) use of aspirin; Z79.891 Long term (current) use of opiate analgesic; Z90.49 Acquired absence of other specified parts of digestive tract; Z90.710 Acquired absence of both cervix and uterus; Z87.891 Personal history of nicotine dependence; Z98.890 Other specified postprocedural states; Z86.73 Personal history of transient ischemic attack (TIA), and cerebral infarction without residual deficits
CPT/HCPCS: 36415; 70450; 70496; 70498; 70551; 71045; 74230; 80048; 80053; 80061; 82533; 82947; 83036; 83735; 84100; 84443; 84484; 85025; 85520; 85610; 85730; 92526; 92610; 92611; 93005; 93010; 93306; 94762; 96365; 96366; 96374-59; 96375; 96376; 97110; 97110-CQ; 97112; 97112-CQ; 97162; 97165; 97530; 97535; 99285-25; A9270; C1751; C1769; G0378; J0360; J1644; J1720; J2405; J2704; J3010; J7060; J7120; J7512; Q9967

== ENCOUNTER 2025-03-11 09:44 | Emergency (ER) | payer MEDICARE, OTHER ==
[~2025-03-11] VITALS: Ht 162.6 cm; Wt 65.8 kg
[~2025-03-11 09:44] MED LIST changes: +ATOR80 PT; +Docusate S50 MG/5 ML PT; +HYDSUL200 PO; +LISI5 PT; +MELATONIN5 M1 PT; +MIRALAX17 GM PT; +MIRTAZAPINE7.5 M1 PO; +NIFE30ER PO; +PRED5 PT; +TICA90TA PT
[2025-03-11 11:06] LABS: Albumin, Blood 3.6 g/dL (3.4-5.0); Albumin/Globulin Ratio 0.9 (0.8-1.8); Bilirubin, Total 0.7 mg/dL (0.1-1.0); Bun/Creatinine Ratio 56.1 (12.0-20.0); Calcium, Blood 9.8 mg/dL (8.5-10.1); Creatinine, Blood 1.14 mg/dL (0.40-1.00); Globulin, Blood 4.1 g/dL (2.2-4.0); Potassium, Blood 4.9 mmol/L (3.5-5.5); Total Protein, Blood 7.7 g/dL (6.4-8.2)
[2025-03-11 11:24] LABS: BASOPHILS ABSOLUTE AUTO 0.06 K/mm3 (0.00-0.23); BASOPHILS PERCENT AUTO 0 % (0-2); EOSINOPHILS ABSOLUTE AUTO 0.18 K/mm3 (0.00-0.68); EOSINOPHILS PERCENT AUTO 1 % (0-6); Hemoglobin 14.1 g/dL (11.5-16.0); IMMATURE GRAN ABSOLUTE AUTO 0.05 K/mm3 (0.00-0.10); IMMATURE GRAN PERCENT AUTO 0 % (0-1); LYMPHOCYTES PERCENT AUTO 17 % (21-46); MONOCYTES ABSOLUTE AUTO 0.68 K/mm3 (0.16-1.47); MONOCYTES PERCENT AUTO 4 % (4-13); Mean Corpuscular HGB Conc 30.7 g/dL (31.5-36.5); Mean Corpuscular Volume 104 fL (80-100); NEUTROPHILS PERCENT AUTO 77 % (41-73); Platelet Count 198 K/mm3 (150-400); RDW Coefficient Variation 12.4 % (11.7-14.2); RDW Standard Deviation 48.2 fL (35.1-46.3); Red Blood Cell Count 4.41 M/mm3 (3.80-5.20); White Blood Cell Count 15.37 K/mm3 (4.00-11.30)
[2025-03-11 11:27] LABS: Mean Platelet Volume 13.9 fL (9.1-12.4)
[2025-03-11 11:36] LABS: Source, Urine Straight Cath
[2025-03-11 11:40] LABS: Bilirubin, Urine Neg (Neg); Blood, Urine 2+ (Neg); Glucose Qualitative, Urine 4+ (Neg); Ketones, Urine Neg (Neg); Leukocyte Esterase, Urine Neg (Neg); Nitrite, Urine Neg (Neg); Protein, Urine 2+ (Neg); Urobilinogen, Urine NORM (Normal)
[2025-03-11 11:41] LABS: Appearance, Urine Clear (Clear); Color, Urine Yellow (P-Yellow)
[2025-03-11 11:46] LABS: Squamous Epithelial Cells Many /hpf (Few)
[2025-03-11 11:47] LABS: Bacteria Many /hpf; Hyaline Casts 0-2 /lpf (0-2)
[2025-03-11 14:15] VITALS: BP 149/81
== END 2025-03-11 14:39 | disposition home or self-care (01) ==
LOC: ER 09:44
PROVIDERS: Emergency Medicine
DX: R53.1 Weakness (principal); R91.1 Solitary pulmonary nodule; I69.320 Aphasia following cerebral infarction; I69.354 Hemiplegia and hemiparesis following cerebral infarction affecting left non-dominant side; I10 Essential (primary) hypertension; E78.5 Hyperlipidemia, unspecified; Z87.891 Personal history of nicotine dependence; Z79.899 Other long term (current) drug therapy
CPT/HCPCS: 71045; 80053; 81001; 85025; 87077; 87086; 87186; 93005; 93010; 99285-25